=== PATIENT | female | born 1970 | race Caucasian/White ===

== ENCOUNTER 2019-03-06 15:10 | Emergency (ER) | payer OTHER ==
[~2019-03-06] VITALS: Ht 160 cm; Wt 77.1 kg
--- NOTE | ~2019-03-06 | EMS ---
[address] [address] EMS Patient Care Report Name: LAY TAYLOR Room #: REG WAYNE Cordero#: [id number] Admission: 03/06/19 Attend Phys: Discharge: Date of : 74 Report #: [id number] THIS REPORT FOR: //name// Report Transmitted: 03/06/2019 15:25 EMS Care Summary [facility] MED-ACT Incident [id number] @ 03/06/2019 14:32 Incident Location [address] [place] [address] [place] [address] Patient LAY TAYLOR Female, 48 Years 1970 Patient Address [address] [place], [place] [address] [place] [address] Patient History Multiple Sclerosis, Patient Allergies No known allergies, Patient Medications Effexor, Chief Complaint Nausea Disposition Transported No Lights/[place] Dispatch Reason Falls Transported To [facility] Narrative [id number] was dispatched to the listed location for a code 2 fall. Upon arrival patient was lying down in the backyard in the care of OPFD. Patient stated that she was walking in her backyard, tripped, and fell hitting her head on a potting plant. Patient denied any loss of consciousness, blood thinners, or [address] [address] EMS Patient Care Report Name: LAY TAYLOR Room #: CARMENCITA Cordero#: [id number] Admission: 03/06/19 Attend Phys: Discharge: Date of : 74 Report #: [id number] feeling dizzy before the fall. Patient stated that she felt very nauseous and dizzy. Patient stated that she had double vision. Patient was very short to answer each question and appeared very upset. On arrival patient was able to walk with assistance to the cot. Patient was remodeling her house and the backyard was very difficult to terrain through. Patient had a small laceration on her right eye that appeared to be slowly oozing blood after direct pressure. Patient had mud on her face and right pants from falling in her backyard. Patient denied any chest pain, head/ neck pain, abd. pain, back pain, or SOB. Initial Vitals @15:04P: 124,SpO2: 99, @14:54P: 115,BP: 177/123,SpO2: 99, @14:59P: 120,BP: 175/118,SpO2: 99, @PTABP: 191/132,SpO2: 100, @14:49P: 122,R: 16,BP: 189/139,Pain: 0/10,GCS: 15,Glucose: 103,SpO2: 99,Revised Trauma: 12, Assessments @14:45MENTAL:No Abnormalities,SKIN:No Abnormalities,HEENT:Head/Face: Other,Neck/Airway: No Abnormalities,LUNG SOUNDS:General: No Abnormalities,Left Upper: No Abnormalities,Right Upper: No Abnormalities,Left Lower: No Abnormalities,Right Lower: No Abnormalities,ABDOMEN:General: No Abnormalities,Left Upper: No Abnormalities,Right Upper: No Abnormalities,Left Lower: No Abnormalities,Right Lower: No Abnormalities,PELVIS//GI:No Abnormalities,EXTREMITIES:Left Arm: No Abnormalities,Right Arm: No Abnormalities,Left Leg: No Abnormalities,Right Leg: No Abnormalities,PULSE:NEURO:No Abnormalities, Impression Eye Injury Procedures @14:54Normal Saline (.9% NaCl) 5cc (20 ga) Site: Hand-RightResponse: UnchangedSucceeded 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,BP: 191/132 M,PULSE: ,RR: R,SPO2: 100 Ox,ETCO2: ,BG: ,PAIN: ,GCS: , 14:31,Call Received 14:31,Psap Call 14:32,Dispatched 14:33,En Route 14:41,On Scene 14:44,At Patient 14:49,BP: 189/139 M,PULSE: 122,RR: 16 R,SPO2: 99 Ox,ETCO2: ,B,PAIN: 0,GCS: 15, 14:54,BP: 177/123 M,PULSE: 115,RR: R,SPO2: 99 Ox,ETCO2: ,BG: ,PAIN: ,GCS: , [address] [address] EMS Patient Care Report Name: LAY TAYLOR Room #: REG WAYNE Cordero#: [id number] Admission: 03/06/19 Attend Phys: Discharge: Date of : 74 Report #: [id number] 14:54,Normal Saline (.9% NaCl) 5cc 20 ga Site: Hand-Right,Response: UnchangedSucceeded, 14:55,Depart Scene 14:59,BP: 175/118 M,PULSE: 120,RR: R,SPO2: 99 Ox,ETCO2: ,BG: ,PAIN: ,GCS: , 15:04,BP: / M,PULSE: 124,RR: R,SPO2: 99 Ox,ETCO2: ,BG: ,PAIN: ,GCS: , 15:06,At Destination 15:34,Call Closed Disclaimer v1.1 Copyright 2019 [employer] This EMS Care Summary contains data elements from the applicable legal record (which may be displayed differently). It is designed to provide pertinent information for the following purposes: continuity of care, clinical quality, and state data reporting. The complete legal record is available to ED staff and administrators of the receiving hospital in [employer]'s Patient Tracker. All data is provided "as is."
--- NOTE | ~2019-03-06 | EMS ---
[address] [address] EMS Patient Care Report Name: LAY TAYLOR Room #: DEP WAYNE Cordero#: [id number] Admission: 03/06/19 Attend Phys: Discharge: 03/06/19 Date of : 74 Report #: [id number] THIS REPORT FOR: //name// Report Transmitted: 03/08/2019 09:58 EMS Care Summary [facility] MED-ACT Incident [id number] @ 03/06/2019 14:32 Incident Location [address] [place] [address] [place] [address] Patient LAY TAYLOR Female, 48 Years 1970 Patient Address [facility] [place] [address] Patient History Multiple Sclerosis, Patient Allergies No known allergies, Patient Medications Effexor, Chief Complaint Nausea Disposition Transported No Lights/[place] Dispatch Reason Falls Transported To [facility] Narrative [id number] was dispatched to the listed location for a code 2 fall. Upon arrival patient was lying down in the backyard in the care of OPFD. Patient stated that she was walking in her backyard, tripped, and fell hitting her head on a potting plant. Patient denied any loss of consciousness, blood thinners, or [facility] [address] [place] [address] EMS Patient Care Report Name: LAY TAYLOR Room #: DEP WAYNE Cordero#: [id number] Admission: 03/06/19 Attend Phys: Discharge: 03/06/19 Date of : 74 Report #: [id number] feeling dizzy before the fall. Patient stated that she felt very nauseous and dizzy. Patient stated that she had double vision. Patient was very short to answer each question and appeared very upset. On arrival patient was able to walk with assistance to the cot. Patient was remodeling her house and the backyard was very difficult to terrain through. Patient had a small laceration on her right eye that appeared to be slowly oozing blood after direct pressure. Patient had mud on her face and right pants from falling in her backyard. Patient denied any chest pain, head/ neck pain, abd. pain, back pain, or SOB. Initial Vitals @15:04P: 124,SpO2: 99, @14:54P: 115,BP: 177/123,SpO2: 99, @14:59P: 120,BP: 175/118,SpO2: 99, @PTABP: 191/132,SpO2: 100, @14:49P: 122,R: 16,BP: 189/139,Pain: 0/10,GCS: 15,Glucose: 103,SpO2: 99,Revised Trauma: 12, Assessments @14:45MENTAL:No Abnormalities,SKIN:No Abnormalities,HEENT:Head/Face: Other,Neck/Airway: No Abnormalities,LUNG SOUNDS:General: No Abnormalities,Left Upper: No Abnormalities,Right Upper: No Abnormalities,Left Lower: No Abnormalities,Right Lower: No Abnormalities,ABDOMEN:General: No Abnormalities,Left Upper: No Abnormalities,Right Upper: No Abnormalities,Left Lower: No Abnormalities,Right Lower: No Abnormalities,PELVIS//GI:No Abnormalities,EXTREMITIES:Left Arm: No Abnormalities,Right Arm: No Abnormalities,Left Leg: No Abnormalities,Right Leg: No Abnormalities,PULSE:NEURO:No Abnormalities, Impression Eye Injury Procedures @14:54Normal Saline (.9% NaCl) 5cc (20 ga) Site: Hand-RightResponse: UnchangedSucceeded 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,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 M,PULSE: ,RR: R,SPO2: 100 Ox,ETCO2: ,BG: ,PAIN: ,GCS: , 14:31,Call Received 14:31,Psap Call 14:32,Dispatched 14:33,En Route 14:41,On Scene 14:44,At Patient 14:49,BP: 189/139 M,PULSE: 122,RR: 16 R,SPO2: 99 Ox,ETCO2: ,B,PAIN: 0,GCS: 15, 14:54,BP: 177/123 M,PULSE: 115,RR: R,SPO2: 99 Ox,ETCO2: ,BG: ,PAIN: ,GCS: , [address] [address] EMS Patient Care Report Name: LAY TAYLOR Room #: DEP WAYNE Cordero#: [id number] Admission: 03/06/19 Attend Phys: Discharge: 03/06/19 Date of : 74 Report #: [id number] 14:54,Normal Saline (.9% NaCl) 5cc 20 ga Site: Hand-Right,Response: UnchangedSucceeded, 14:55,Depart Scene 14:59,BP: 175/118 M,PULSE: 120,RR: R,SPO2: 99 Ox,ETCO2: ,BG: ,PAIN: ,GCS: , 15:04,BP: / M,PULSE: 124,RR: R,SPO2: 99 Ox,ETCO2: ,BG: ,PAIN: ,GCS: , 15:06,At Destination 15:34,Call Closed Disclaimer v1.1 Copyright 2019 [employer] This EMS Care Summary contains data elements from the applicable legal record (which may be displayed differently). It is designed to provide pertinent information for the following purposes: continuity of care, clinical quality, and state data reporting. The complete legal record is available to ED staff and administrators of the receiving hospital in [employer]'s Patient Tracker. All data is provided "as is."
[2019-03-06] MEDS ORDERED: VENLAFAXINE H37.5 M2 PO (15:59)
[2019-03-06] MEDS ORDERED: NEOMYC-POLYM-DEX5 ML OPHTHALMIC ×2 (17:28→17:48)
[2019-03-06] MEDS ORDERED: NORCO 5-325 TA1 EAC1 PO (17:28)
[2019-03-06] MEDS ORDERED: AUGMENTIN 875-1 EACH PO (17:28)
[2019-03-06 17:38] VITALS: BP 113/48
[2019-03-06] MEDS ORDERED: KEFLEX500 M1 PO (17:48)
[2019-03-06] MEDS ORDERED: ONDANSETRON HCL4 M2 PO (18:29)
== END 2019-03-06 18:30 | disposition home or self-care (01) ==
LOC: ER 15:10
DX: S02.31XA Fracture of orbital floor, right side, initial encounter for closed fracture (principal); S01.111A Laceration without foreign body of right eyelid and periocular area, initial encounter; S05.01XA Injury of conjunctiva and corneal abrasion without foreign body, right eye, initial encounter; S09.8XXA Other specified injuries of head, initial encounter; G35 Multiple sclerosis; F41.9 Anxiety disorder, unspecified; W01.198A Fall on same level from slipping, tripping and stumbling with subsequent striking against other object, initial encounter; Y93.01 Activity, walking, marching and hiking; Y92.009 Unspecified place in unspecified non-institutional (private) residence as the place of occurrence of the external cause; Y99.8 Other external cause status